=== PATIENT | female | born 1970 | race Two or more races ===

== ENCOUNTER 2017-02-10 18:48 | Inpatient (IN) | payer SELFPAY ==
--- NOTE | 2017-02-10 19:48 | DR.GENAD ---
HPI - PCP Primary Care Physician: NANCI PERERA - HPI Comment HPI Comment: REDNESS AND PAIN LEFT BREAST TIMES 2 WEEKS. PATIENT SAID IT JUST STARTED AND IS GETTING WORSE. NO FEVER. NO DRAINAGE. - Complaint/Symptoms Chief Complaint Doctors Comments: LEFT BREAST INFECTION ON BACTRIM TIMES 2 WEEKS. Chief Complaint:: PT HAS CELLULITIS TO HER LEFT BREAST FOR 2 WEEKS PT WENT TO CLINIC IN [place] AND SHE WAS GIVEN BACTRIM AND SHE SAYS ITS NOT WORKING AND ITS GETTING WORSE.. Self Treatment fo Chief Complaint: PTD LEFT BREST IS RED AROUND NIPPLE AREA AND OUTER BREASTS ,, ... - Nurses notes reviewed Nurses Notes Review: Yes - Source History Provided: Patient - Mode of Arrival Mode of Arrival: Ambulatory - Timing Onset of Chief Complaint: 01/27/17 Came on: Suddenly - Duration Duration: Constant Duration: Minutes - Severity Severity: Moderate PMH - PMH Past Medical History: Yes Past Medical History: Anxiety Past Surgical History: Yes Past Surgical History Comment: TUBAL - Family History History of Family Medical Conditions: No - Social History Does patient currently use any type of tobacco product: No Have you used tobacco products in the last 12 months: No Type of Tobacco Use: None Does any household member use tobacco: No Alcohol Use: None Do you use any recreational Drugs:: No Lives With: Family Lives Where: Home - infectious screening In the last 2 months have you had wt loss of >10#?: NO Have you had fever, night sweats or hemotysis?: No Have you traveled outside the country in the last 6 months?: No Isolation: Standard ROS - Review of Systems Constitutional: No Symptoms Reported Eyes: No Symptoms Reported ENTM: No Symptoms Reported Respiratoy: No Symptoms Reported Cardiovascular: No Symptoms Reported Gastrointestinal/Abdominal: No Symptoms Reported Genitourinary: No Symptoms Reported Neurological: No Symptoms Reported Musculoskeletal: Muscle Pain Integumentary: Other (LEFT BREAST RED WITH INVERTED NIPPLE AND ORANGE PEEL APPEARANCE OF THE BREAT.) Hematologic/Lymphatic: No Symptoms Reported Endocrine: No Symptoms Reported All Other Systems: Reviewed and Negative PE - Vital Signs Vitals: Temperature 98.6 F Pulse Rate 109 Respiratory Rate 18 Blood Pressure 141/81 O2 Sat by Pulse Oximetry 97 - General Limitations: No Limitations General Appearance: Alert - Head Head Exam: Normal Inspection - Eyes Eye exam: Normal Appearance - ENT ENT Exam: Normal External Ear Exam External Ear Exam: Normal External Inspection TM/Canal Exam: Bilateral Normal Nose Exam: Normal Nose Exam Mouth Exam: Normal Inspection Throat Exam: Normal Inspection - Neck Neck Exam: Normal Inspection, Trachea Midline - Chest Chest Inspection: Symmetric Chest Wall Rise - Respiratory Respiratory Exam: Normal Lung Sounds Bilat Respiratory Exam: Bilateral Clear to Auscultation - Cardiovascular Cardiovascular Exam: Regular Rate, Normal Rhythm, Normal Heart Sounds - Abdominal Exam Abdominal Exam: Normal Bowel Sounds, Soft. negative: Tenderness - Extremities Extremities Exam: Normal Inspection - Back Back Exam: Normal Inspection - Psychiatric Psychiatric Exam: Normal Affect, Normal Mood - Skin Skin Exam: Erythema (BREAST RES, FIRM WITH ORANGE PEEL APPEARANCE OF THE BREAST. NO INCREASE IN TEMP.) MDM - Additional Information Additional Information Obtained From: Family - Differential Diagnosis Differential Diagnosis: MASTITIS LEFT BREAST. RULE OUT INFLAMMATORY CANCER. Course - Treatment Treatment: SEE ORDERS - Consultation Consultation Comments: DISCUSS PATIENT WITH DR. CALL. HE WILL ADMIT PATIENT. - Education/Counseling Education/Counseling: Patient, Family, Education Educated On: Treatment, Diagnosis ROR - Labs Reviewed Laboratory Results Reviewed?: Yes Result Diagrams: 02/11/17 04:40 02/11/17 04:40 Laboratory: WBC 9.7 X10^3/uL (3.6-10.0) 02/10/17 19:56 RBC 4.35 X10^6/uL (3.5-5.4) 02/10/17 19:56 Hgb 12.8 g/dL (12.0-16.0) 02/10/17 19:56 Hct 36.4 % (36.0-47.0) 02/10/17 19:56 MCV 83.6 fL (80.0-100.0) 02/10/17 19:56 MCH 29.4 pg (27.0-34.0) 02/10/17 19:56 MCHC 35.2 g/dL (33.0-35.0) H 02/10/17 19:56 RDW 12.6 % (11.6-16.5) 02/10/17 19:56 Plt Count 231 X10^3/uL (150.0-450.0) 02/10/17 19:56 MPV 8.9 fL (7.4-11.0) 02/10/17 19:56 Neut % 72.5 % (42.0-75.0) 02/10/17 19:56 Lymph % 18.2 % (21.0-51.0) L 02/10/17 19:56 [place] % 5.8 % (0.0-13.0) 02/10/17 19:56 Eos % 3.0 % (0.9-2.9) H 02/10/17 19:56 Baso % 0.5 % (0.2-1.0) 02/10/17 19:56 Neut # 7.0 x10^3/uL (2.2-4.8) H 02/10/17 19:56 Lymph # 1.8 X10^3/uL (1.3-2.9) 02/10/17 19:56 [place] # 0.6 x10^3/uL (0.3-0.8) 02/10/17 19:56 Eos # 0.3 x10^3/uL (0.0-0.2) H 02/10/17 19:56 Baso # 0.1 X10^3/uL (0.0-0.1) 02/10/17 19:56 Absolute Nucleated RBC 0.0 /100WBC 02/10/17 19:56 Sodium 138 mmol/L (136-145) 02/10/17 19:56 Corrected Sodium 138 mmol/L (136-145) 02/10/17 19:56 Potassium 3.9 mmol/L (3.5-5.1) 02/10/17 19:56 Chloride 103 mmol/L (98-107) 02/10/17 19:56 Carbon Dioxide 25.2 mmol/L (21-32) 02/10/17 19:56 BUN 10 mg/dL (7-18) 02/10/17 19:56 Creatinine 0.94 mg/dL (0.55-1.02) 02/10/17 19:56 Est GFR (MDRD) Af Amer > 60 (>60) 02/10/17 19:56 Est GFR (MDRD) Non-Af > 60 (>60) 02/10/17 19:56 Glucose 120 mg/dL (65-99) H 02/10/17 19:56 Calcium 8.9 mg/dL (8.5-10.1) 02/10/17 19:56 Corrected Calcium 9.5 mg/dL (8.5-10.1) 02/10/17 19:56 Total Bilirubin 0.40 mg/dL (0.2-1.0) 02/10/17 19:56 AST 14 Units/L (15-37) L 02/10/17 19:56 ALT 23 Units/L (12-78) 02/10/17 19:56 Alkaline Phosphatase 143 Units/L (46-116) H 02/10/17 19:56 C-Reactive Protein 64.90 mg/L (0-3.0) H 02/10/17 19:56 Total Protein 7.8 g/dL (6.4-8.2) 02/10/17 19:56 Albumin 3.3 g/dL (3.4-5.0) L 02/10/17 19:56 Globulin 4.5 g/dL (2.5-4.5) 02/10/17 19:56 Albumin/Globulin Ratio 0.7 Ratio (1.1-2.1) L 02/10/17 19:56 - Diagnosis Discharge Problem: Mastitis of left breast unrelated to or - Discharge Plan Disposition: ADMITTED INPATIENT Condition: Stable - Follow ups/Referrals - Instructions
[2017-02-10 20:10] LABS: BASOPHILS # (AUTO) 0.1 X10^3/uL (0.0-0.1); BASOPHILS % (AUTO) 0.5 % (0.2-1.0); EOSINOPHILS # (AUTO) 0.3 x10^3/uL (0.0-0.2); HEMATOCRIT 36.4 % (36.0-47.0); HEMOGLOBIN 12.8 g/dL (12.0-16.0); LYMPHOCYTES # (AUTO) 1.8 X10^3/uL (1.3-2.9); LYMPHOCYTES % (AUTO) 18.2 % (21.0-51.0); MEAN CORPUSCULAR HEMOGLOBIN 29.4 pg (27.0-34.0); MEAN CORPUSCULAR HGB CONC 35.2 g/dL (33.0-35.0); MEAN CORPUSCULAR VOLUME 83.6 fL (80.0-100.0); MEAN PLATELET VOLUME 8.9 fL (7.4-11.0); MONOCYTES # (AUTO) 0.6 x10^3/uL (0.3-0.8); MONOCYTES % (AUTO) 5.8 % (0.0-13.0); NEUTROPHILS % (AUTO) 72.5 % (42.0-75.0); PLATELET COUNT 231 X10^3/uL (150.0-450.0); RED BLOOD COUNT 4.35 X10^6/uL (3.5-5.4); RED CELL DISTRIBUTION WIDTH 12.6 % (11.6-16.5); WHITE BLOOD COUNT 9.7 X10^3/uL (3.6-10.0)
[2017-02-10 20:25] LABS: ALANINE AMINOTRANSFERASE 23 Units/L (12-78); ALBUMIN 3.3 g/dL (3.4-5.0); ALKALINE PHOSPHATASE 143 Units/L (46-116); ASPARTATE AMINO TRANSFERASE 14 Units/L (15-37); BLOOD UREA NITROGEN 10 mg/dL (7-18); CALCIUM 8.9 mg/dL (8.5-10.1); CARBON DIOXIDE 25.2 mmol/L (21-32); CHLORIDE 103 mmol/L (98-107); COR CA(FOR HYPOALB) 9.5 mg/dL (8.5-10.1); COR NA(FOR HYPERGLY) 138 mmol/L (136-145); CREATININE 0.94 mg/dL (0.55-1.02); SODIUM 138 mmol/L (136-145); TOTAL PROTEIN 7.8 g/dL (6.4-8.2); eGFR BLACK RACES > 60 (>60); eGFR NON BLACK RACES > 60 (>60)
[2017-02-10] MEDS ORDERED: PHENERGAN TAB 25 MG PO PRN (21:39)
[2017-02-10] MEDS ORDERED: TORADOL 30 MG VIAL IVP PRN (21:49)
[2017-02-10] MEDS ORDERED: NS 100 ML IV + SPIKE MINIBAG* 100 ML IV ONE (21:50)
[2017-02-10] MEDS ORDERED: ZOSYN VIAL 3.375 GM IV ONE (21:50)
[2017-02-10] MEDS ORDERED: NS 1000 ML 1,000 ML ONE (21:50)
[2017-02-10] MEDS: NS 1000 ML 1,000 ML IV SCH (21:56)
[2017-02-10] MEDS: ZOSYN VIAL 3.375 GM 3.375 GM in NS 100 ML IV + SPIKE MINIBAG* 100 ML IV SCH (21:56)
[2017-02-10 23:16] VITALS: BMI 50.5
[2017-02-11] MEDS: ANCEF VIAL 1 GM 1 GM in NS 100 ML IV 100 ML IV SCH ×4 (00:26→21:03)
[2017-02-11 05:18] LABS: BASOPHILS % (AUTO) 0.5 % (0.2-1.0); EOSINOPHILS # (AUTO) 0.3 x10^3/uL (0.0-0.2); EOSINOPHILS % (AUTO) 4.5 % (0.9-2.9); HEMATOCRIT 34.7 % (36.0-47.0); HEMOGLOBIN 11.9 g/dL (12.0-16.0); LYMPHOCYTES # (AUTO) 1.3 X10^3/uL (1.3-2.9); LYMPHOCYTES % (AUTO) 18.5 % (21.0-51.0); MEAN CORPUSCULAR HGB CONC 34.4 g/dL (33.0-35.0); MEAN CORPUSCULAR VOLUME 84.2 fL (80.0-100.0); MEAN PLATELET VOLUME 9.2 fL (7.4-11.0); MONOCYTES # (AUTO) 0.4 x10^3/uL (0.3-0.8); MONOCYTES % (AUTO) 5.6 % (0.0-13.0); NEUTROPHILS % (AUTO) 70.9 % (42.0-75.0); PLATELET COUNT 196 X10^3/uL (150.0-450.0); RED BLOOD COUNT 4.12 X10^6/uL (3.5-5.4); RED CELL DISTRIBUTION WIDTH 12.6 % (11.6-16.5)
[2017-02-11 05:33] LABS: ALANINE AMINOTRANSFERASE 20 Units/L (12-78); ALBUMIN 2.8 g/dL (3.4-5.0); ALKALINE PHOSPHATASE 123 Units/L (46-116); ASPARTATE AMINO TRANSFERASE 13 Units/L (15-37); BLOOD UREA NITROGEN 8 mg/dL (7-18); CALCIUM 8.2 mg/dL (8.5-10.1); CARBON DIOXIDE 24.7 mmol/L (21-32); CHLORIDE 104 mmol/L (98-107); COR CA(FOR HYPOALB) 9.2 mg/dL (8.5-10.1); COR NA(FOR HYPERGLY) 138 mmol/L (136-145); CREATININE 0.86 mg/dL (0.55-1.02); SODIUM 137 mmol/L (136-145); TOTAL PROTEIN 6.8 g/dL (6.4-8.2); eGFR BLACK RACES > 60 (>60); eGFR NON BLACK RACES > 60 (>60)
[2017-02-11] MEDS: ZOSYN VIAL 3.375 GM 3.375 GM in NS 100 ML IV + SPIKE MINIBAG* 100 ML IV SCH ×3 (06:16→21:04)
[2017-02-11] MEDS: NS 1000 ML 1,000 ML IV SCH ×3 (06:16→21:04)
[2017-02-11] MEDS: BACTRIM DS TAB PO SCH ×2 (10:04→21:03)
[2017-02-11] MEDS: COGENTIN TAB 1 MG PO SCH ×2 (13:52→21:03)
[2017-02-11] MEDS: ATIVAN TAB 1 MG PO SCH (21:03)
--- NOTE | 2017-02-11 21:12 | DR.H&P ---
H&P - History & Physical for Day of: H&P Date: 02/10/17 - Chief Complaint Chief Complaint: LEFT BREAST PAIN AND SWELLING - Allergies Allergies/Adverse Reactions: Allergies Allergy/AdvReac Type Severity Reaction Status Date / Time No Known Drug Allergies Allergy Verified 02/10/17 18:52 - History of Present Illness History of Present Illness: IS A 46 YEAR OLD FEMALE WHO PRESENTED TO THE EMERGENCY ROOM WITH COMPLAINTS OF LEFT BREAST REDNESS AND PAIN. PATIENT REPORTS THAT SHE WAS SEEN IN THE CLINIC 2 WEEKS AGO AND WAS GIVEN BACTRIM FOR CELLULITIS. PATIENT REPORTS THAT REDENESS AND PAIN ONLY WORSENED DESPITE COMPLIANCE WITH ANTIBIOTICS. ON EXAMINATION, LEFT BREAST WAS NOTED WITH REDNESS AND INVERTED NIPPLE. BREAST ALSO HAD AN ORANGE PEEL APPEARANCE. SHE DENIES FEVER OR DRAINAGE. ON ARRIVAL TO ER, VITALS WERE 98.6-109-18-97%-141/81. A CBC AND CMP WERE OBTAINED. ABNORMAL LAB VALUES INCLUDE THE FOLLOWING: GLUCOSE 120, AST 14, ALK PHOS 143, CRP 64.9, ALBUMIN 3.3. WE ADMITTED PATIENT FOR FURTHER TREATMENT AND EVALUATION OF LEFT MASTITIS AND TO R/O INFLAMMATORY CANCER. WE STARTED PATIENT ON NS @ 125ML/HR, ANCEP 1 GM IV Q8H, AND ZOSYN 3.375 IV Q8H. WE WILL CHECK CBC, CMP, AND OBTAIN A ULTRASOUND OF THE BREAST IN THE AM AND WILL CONTINUE TO MONITOR PATIENT. - Past Medical History Past Medical History: Anxiety - Past Surgical History Surgical History: No History - Social History Does patient currently use any type of tobacco product: No Have you used tobacco products in the last 12 months: No Type of Tobacco Use: None Does any household member use tobacco: No Alcohol Use: None Drug Use: None - Medications Home Medications: Benztropine Mesylate [COGENTIN 1 MG TAB *] 1 mg PO TID 02/10/17 [History Confirmed 02/10/17] Lorazepam [ATIVAN 1 MG TAB *] 1 mg PO HS 02/10/17 [History Confirmed 02/10/17] Sulfamethoxazole-Trimethoprim [BACTRIM DS TAB 800/160 MG *] 1 tab PO BID [History Confirmed 02/10/17] - Review of Systems Constitutional: Fever Eyes: No Symptoms Reported ENT: No Symptoms Reported Respiratory: No Symptoms Reported Cardiovascular: No Symptoms Reported Gastrointestinal: No Symptoms Reported Genitourinary: No Symptoms Reported Musculoskeletal: No Symptoms Reported Skin: See HPI, Other (REDNESS TO LEFT BREAST, INVERTED NIPPLE) Neurological: No Symptoms Reported - Physical Exam Vital Signs: Temperature 98.1 F Pulse Rate [Left Brachial] 81 Pulse Rate 109 Respiratory Rate 18 Blood Pressure [Left Arm] 100/55 Blood Pressure 141/81 O2 Sat by Pulse Oximetry 97 Oriented: Normal Eyes: Normal Ear: Normal Nose: Normal Throat: Normal Respiratory: Clear Throughout Cardiovascular: Normal : Normal Auscultation: Bowel Sounds: Normal Palpation: Normal Tenderness: Normal Skin: Red (LEFT BREAST ), Tender, Hot Musculoskeletal: Normal Psychiatric: Normal Mood Description: Calm Affect: Normal Speech Pattern: Clear - Assessment/Plan (1) Mastitis of left breast unrelated to or Status: Acute Plan: BREAST US, ANCEF AND ZOSYN IV, CONTINUE TO MONITOR
--- NOTE | 2017-02-11 21:56 | PCM.PROG ---
Progress Note - Progress Note for Day of Date: 02/11/17 - Subjective Subjective: WAS ADMITTED FOR MASTITIS OF THE LEFT BREAST. SHE IS ALERT AND ORIENTED, LYING IN BED ON MORNING ROUNDS. PATIENTS DAUGHTER IS AT BEDSIDE. PATIENT IS NOTED WITH COMPLAINTS OF PAIN, REDNESS, AND SWELLING TO THE LEFT BREAST. PATIENT REPORTED THAT SYMPTOMS BEGAN TWO WEEKS AGO. SHE REPORTS BEING PRESCRIBED BACTRIM, HOWEVER, SYMPTOMS GOT WORSE DESPITE COMPLIANCE WITH ANTIBIOTICS. ON EXAMINATION, LEFT BREAST IS NOTED WITH ERRYTHEMA AND HARDENED MASS. WE SUSPECT THIS TO BE AN ABSCESS. LUNGS ARE CLEAR TO AUSCULTATION. ABDOMEN IS SOFT, ROUND, AND NON TENDER. NORMAL BOWEL SOUNDS ARE NOTED IN ALL QUADRANTS. VITAL SIGNS THIS MORNING WERE 98.2-84-18-97%-107/57. WE OBTAINED A CBC AND CMP. ABNORMAL LAB RESULTS ARE FOLLOWS: HGB 11.9, HCT 34.7, GLUCOSE 145, CALCIUM 8.2, AST 13, ALK PHOS 123, ALBUMIN 2.8. A BREAST ULTRASOUND IS PENDING FOR THIS MORNING. WE WILL CONTINUE WITH CURRENT PLAN OF CARE. WE PLAN TO CHECK A CBC AND CMP IN THE MORNING AND CONTINUE TO MONITOR PATIENT. - Past Medical Family Social History Past Med/Fam/Surg Hx: No changes since H&P Allergies: Allergies No Known Drug Allergies Allergy (Verified 02/10/17 18:52) - Review of Systems ROS: No change since H&P - Vital Signs and I&O's Vital Signs: Temperature 98.1 F Pulse Rate [Left Brachial] 81 Pulse Rate 109 Respiratory Rate 18 Blood Pressure [Left Arm] 100/55 Blood Pressure 141/81 O2 Sat by Pulse Oximetry 97 Intake and Output: Intake & Output 02/09/17 02/10/17 02/11/17 02/12/17 11:59 11:59 11:59 11:59 Intake Total 2009 1655 Balance 2009 1655 - Physical Exam Oriented: Normal Eyes: Normal Ear: Normal Nose: Normal Throat: Normal Respiratory: Normal Cardiovascular: Normal : Normal Auscultation: Bowel Sounds: Normal Palpation: Normal Tenderness: Normal Skin: Red (LEFT BREAST ), Tender, Hot Musculoskeletal: Normal Psychiatric: Normal Mood Description: Calm Affect: Normal Speech Pattern: Clear - Laboratory and Diagnostics Result Diagrams: 02/11/17 04:40 02/11/17 04:40 Labs: Laboratory WBC 7.0 X10^3/uL (3.6-10.0) 02/11/17 04:40 RBC 4.12 X10^6/uL (3.5-5.4) 02/11/17 04:40 Hgb 11.9 g/dL (12.0-16.0) L 02/11/17 04:40 Hct 34.7 % (36.0-47.0) L 02/11/17 04:40 MCV 84.2 fL (80.0-100.0) 02/11/17 04:40 MCH 29.0 pg (27.0-34.0) 02/11/17 04:40 MCHC 34.4 g/dL (33.0-35.0) 02/11/17 04:40 RDW 12.6 % (11.6-16.5) 02/11/17 04:40 Plt Count 196 X10^3/uL (150.0-450.0) 02/11/17 04:40 MPV 9.2 fL (7.4-11.0) 02/11/17 04:40 Neut % 70.9 % (42.0-75.0) 02/11/17 04:40 Lymph % 18.5 % (21.0-51.0) L 02/11/17 04:40 [place] % 5.6 % (0.0-13.0) 02/11/17 04:40 Eos % 4.5 % (0.9-2.9) H 02/11/17 04:40 Baso % 0.5 % (0.2-1.0) 02/11/17 04:40 Neut # 5.0 x10^3/uL (2.2-4.8) H 02/11/17 04:40 Lymph # 1.3 X10^3/uL (1.3-2.9) 02/11/17 04:40 [place] # 0.4 x10^3/uL (0.3-0.8) 02/11/17 04:40 Eos # 0.3 x10^3/uL (0.0-0.2) H 02/11/17 04:40 Baso # 0.0 X10^3/uL (0.0-0.1) 02/11/17 04:40 Absolute Nucleated RBC 0.0 /100WBC 02/11/17 04:40 Sodium 137 mmol/L (136-145) 02/11/17 04:40 Corrected Sodium 138 mmol/L (136-145) 02/11/17 04:40 Potassium 4.0 mmol/L (3.5-5.1) 02/11/17 04:40 Chloride 104 mmol/L (98-107) 02/11/17 04:40 Carbon Dioxide 24.7 mmol/L (21-32) 02/11/17 04:40 BUN 8 mg/dL (7-18) 02/11/17 04:40 Creatinine 0.86 mg/dL (0.55-1.02) 02/11/17 04:40 Est GFR (MDRD) Af Amer > 60 (>60) 02/11/17 04:40 Est GFR (MDRD) Non-Af > 60 (>60) 02/11/17 04:40 Glucose 145 mg/dL (65-99) H 02/11/17 04:40 Calcium 8.2 mg/dL (8.5-10.1) L 02/11/17 04:40 Corrected Calcium 9.2 mg/dL (8.5-10.1) 02/11/17 04:40 Total Bilirubin 0.40 mg/dL (0.2-1.0) 02/11/17 04:40 AST 13 Units/L (15-37) L 02/11/17 04:40 ALT 20 Units/L (12-78) 02/11/17 04:40 Alkaline Phosphatase 123 Units/L (46-116) H 02/11/17 04:40 C-Reactive Protein 64.90 mg/L (0-3.0) H 02/10/17 19:56 Total Protein 6.8 g/dL (6.4-8.2) 02/11/17 04:40 Albumin 2.8 g/dL (3.4-5.0) L 02/11/17 04:40 Globulin 4.0 g/dL (2.5-4.5) 02/11/17 04:40 Albumin/Globulin Ratio 0.7 Ratio (1.1-2.1) L 02/11/17 04:40 - Plan (1) Mastitis of left breast unrelated to or Status: Acute Plan: BREAST US, ANCEF AND ZOSYN IV, CONTINUE TO MONITOR
[2017-02-12] MEDS: NS 1000 ML 1,000 ML IV SCH ×5 (03:15→21:54)
[2017-02-12] MEDS: COGENTIN TAB 1 MG PO SCH ×3 (05:18→21:54)
[2017-02-12] MEDS: ANCEF VIAL 1 GM 1 GM in NS 100 ML IV 100 ML IV SCH ×3 (05:18→21:53)
[2017-02-12] MEDS: ZOSYN VIAL 3.375 GM 3.375 GM in NS 100 ML IV + SPIKE MINIBAG* 100 ML IV SCH ×3 (05:19→21:54)
[2017-02-12 05:34] LABS: ALANINE AMINOTRANSFERASE 17 Units/L (12-78); ALBUMIN 2.7 g/dL (3.4-5.0); ALKALINE PHOSPHATASE 124 Units/L (46-116); ASPARTATE AMINO TRANSFERASE 11 Units/L (15-37); BLOOD UREA NITROGEN 7 mg/dL (7-18); CALCIUM 8.2 mg/dL (8.5-10.1); CHLORIDE 106 mmol/L (98-107); COR CA(FOR HYPOALB) 9.2 mg/dL (8.5-10.1); CREATININE 0.63 mg/dL (0.55-1.02); SODIUM 138 mmol/L (136-145); TOTAL PROTEIN 6.7 g/dL (6.4-8.2); eGFR BLACK RACES > 60 (>60); eGFR NON BLACK RACES > 60 (>60)
[2017-02-12 05:45] LABS: BASOPHILS % (AUTO) 0.7 % (0.2-1.0); EOSINOPHILS # (AUTO) 0.4 x10^3/uL (0.0-0.2); EOSINOPHILS % (AUTO) 5.9 % (0.9-2.9); HEMATOCRIT 34.5 % (36.0-47.0); LYMPHOCYTES # (AUTO) 1.4 X10^3/uL (1.3-2.9); LYMPHOCYTES % (AUTO) 19.6 % (21.0-51.0); MEAN CORPUSCULAR HEMOGLOBIN 29.7 pg (27.0-34.0); MEAN CORPUSCULAR HGB CONC 34.7 g/dL (33.0-35.0); MEAN CORPUSCULAR VOLUME 85.6 fL (80.0-100.0); MEAN PLATELET VOLUME 9.3 fL (7.4-11.0); MONOCYTES # (AUTO) 0.5 x10^3/uL (0.3-0.8); MONOCYTES % (AUTO) 7.4 % (0.0-13.0); NEUTROPHILS # (AUTO) 4.6 x10^3/uL (2.2-4.8); NEUTROPHILS % (AUTO) 66.4 % (42.0-75.0); PLATELET COUNT 209 X10^3/uL (150.0-450.0); RED BLOOD COUNT 4.03 X10^6/uL (3.5-5.4); RED CELL DISTRIBUTION WIDTH 12.2 % (11.6-16.5)
[2017-02-12] MEDS: BACTRIM DS TAB PO SCH ×2 (09:22→20:49)
--- NOTE | 2017-02-12 10:38 | US ---
HISTORY: Left breast pain, edema, erythema Study: Left breast ultrasound Comparison: None Technique: Multiple grayscale and color Doppler images of the left breast were obtained. Findings: From 11-1 o'clock in the region of interest, there is irregular ill-defined hypoechoic parenchyma wit h internal vascularity favored to represent mastitis the with early ill-defined abscess formation not entirely excluded. A trial of antibiotic therapy is recommended. If symptoms persist/worsen after an appropriate trial of therapy, ultrasound-guided aspiration should be attempted. Additionally, routin e outpatient nonemergent bilateral mammography is recommended if not performed within the last year a fter completion of therapy and resolution of symptoms. IMPRESSION: Abnormal sonographic evaluation of the left breast as above. Reported By:
--- NOTE | 2017-02-12 18:35 | PCM.PROG ---
Progress Note - Progress Note for Day of Date: 02/12/17 - Subjective Subjective: WAS ADMITTED FOR MASTITIS OF THE LEFT BREAST. SHE IS ALERT AND ORIENTED, LYING IN BED ON MORNING ROUNDS. PATIENTS DAUGHTER IS AT BEDSIDE. SHE CONTINUES WITH COMPLAINTS OF PAIN, REDNESS, AND SWELLING TO THE LEFT BREAST. ON EXAMINATION, LEFT BREAST CONTINUES WITH ERRYTHEMA, HOWEVER, APPEAR TO BE FORM MAKER SINCE YESTERDAY. SUSPECTED ABSCESS IS SMALLER IS SIZE WHEN PALPATED. NIPPLE IS INVERTED. LUNGS ARE CLEAR TO AUSCULTATION. ABDOMEN IS SOFT, ROUND, AND NON-TENDER. BOWEL SOUNDS ARE NOTED NORMAL IN ALL QUADRANTS. HER VITAL SIGNS THIS MORNING ARE 97.7-85-20-97%-99/57. WE OBTAINED A CBC AND CMP. ABNORMAL LABS INCLUDE THE FOLLOWING: HGB 11.9, HCT 34.7, GLUCOSE 102, CALCIUM 8.2, AST 11, ALK PHOS 124, ALBUMIN 2.7. BREAST ULTRASOUND WAS OBTAINED YESTERDAY. IT REPORTED IRREGULAR ILL DEFINED HYPOECHOIC PARENCHYMA WITH INTERNAL VASCULARITY FAVORED TO REPRESENT MASTITIS WITH EARLY ILL DEFINED ABSCESS FORMATION NOT ENTIRELY EXCLUDED. RADIOLOGIST RECOMMENDED A TRIAL OF ANTIBIOTICS. IF SYMPTOMS WORSEN AFTER ROUND OF ANTIBIOTICS, THEN ULTRASOUND GUIDED ASPIRATION SHOULD BE ATTEMPTED. ADDITIONALLY, MAMMOGRAM IS RECOMMENDED. WE WILL CONTINUE CURRENT PLAN OF CARE. WE PLAN TO OBTAIN CBC, CMP, CRP, AND SED RATE IN THE MORNING AND CONTINUE TO MONITOR PATIENT. - Past Medical Family Social History Past Med/Fam/Surg Hx: No changes since H&P Allergies: Allergies No Known Drug Allergies Allergy (Verified 02/10/17 18:52) - Review of Systems ROS: No change since H&P - Vital Signs and I&O's Vital Signs: Temperature 97.8 F Pulse Rate [Left Brachial] 81 Pulse Rate 109 Respiratory Rate 18 Blood Pressure [Left Arm] 116/58 Blood Pressure 141/81 O2 Sat by Pulse Oximetry 96 Intake and Output: Intake & Output 02/10/17 02/11/17 02/12/17 02/13/17 11:59 11:59 11:59 11:59 Intake Total 2009 3153 1485 Balance 2009 3153 1485 - Physical Exam Oriented: Normal Eyes: Normal Ear: Normal Nose: Normal Throat: Normal Respiratory: Normal Cardiovascular: Normal : Normal Auscultation: Bowel Sounds: Normal Palpation: Normal Tenderness: Normal Skin: Red (LEFT BREAST ), Tender, Hot Musculoskeletal: Normal Psychiatric: Normal Mood Description: Calm Affect: Normal Speech Pattern: Clear, Appropriate - Laboratory and Diagnostics Result Diagrams: 02/12/17 03:35 02/12/17 03:35 Labs: 02/10/17 19:59 Blood Blood Culture - Preliminary 02/10/17 19:56 Blood Blood Culture - Preliminary Laboratory WBC 7.0 X10^3/uL (3.6-10.0) 02/12/17 03:35 RBC 4.03 X10^6/uL (3.5-5.4) 02/12/17 03:35 Hgb 12.0 g/dL (12.0-16.0) 02/12/17 03:35 Hct 34.5 % (36.0-47.0) L 02/12/17 03:35 MCV 85.6 fL (80.0-100.0) 02/12/17 03:35 MCH 29.7 pg (27.0-34.0) 02/12/17 03:35 MCHC 34.7 g/dL (33.0-35.0) 02/12/17 03:35 RDW 12.2 % (11.6-16.5) 02/12/17 03:35 Plt Count 209 X10^3/uL (150.0-450.0) 02/12/17 03:35 MPV 9.3 fL (7.4-11.0) 02/12/17 03:35 Neut % 66.4 % (42.0-75.0) 02/12/17 03:35 Lymph % 19.6 % (21.0-51.0) L 02/12/17 03:35 [place] % 7.4 % (0.0-13.0) 02/12/17 03:35 Eos % 5.9 % (0.9-2.9) H 02/12/17 03:35 Baso % 0.7 % (0.2-1.0) 02/12/17 03:35 Neut # 4.6 x10^3/uL (2.2-4.8) 02/12/17 03:35 Lymph # 1.4 X10^3/uL (1.3-2.9) 02/12/17 03:35 [place] # 0.5 x10^3/uL (0.3-0.8) 02/12/17 03:35 Eos # 0.4 x10^3/uL (0.0-0.2) H 02/12/17 03:35 Baso # 0.0 X10^3/uL (0.0-0.1) 02/12/17 03:35 Absolute Nucleated RBC 0.1 /100WBC 02/12/17 03:35 Sodium 138 mmol/L (136-145) 02/12/17 03:35 Corrected Sodium TNP 02/12/17 03:35 Potassium 4.1 mmol/L (3.5-5.1) 02/12/17 03:35 Chloride 106 mmol/L (98-107) 02/12/17 03:35 Carbon Dioxide 25.0 mmol/L (21-32) 02/12/17 03:35 BUN 7 mg/dL (7-18) 02/12/17 03:35 Creatinine 0.63 mg/dL (0.55-1.02) 02/12/17 03:35 Est GFR (MDRD) Af Amer > 60 (>60) 02/12/17 03:35 Est GFR (MDRD) Non-Af > 60 (>60) 02/12/17 03:35 Glucose 102 mg/dL (65-99) H 02/12/17 03:35 Calcium 8.2 mg/dL (8.5-10.1) L 02/12/17 03:35 Corrected Calcium 9.2 mg/dL (8.5-10.1) 02/12/17 03:35 Total Bilirubin 0.20 mg/dL (0.2-1.0) 02/12/17 03:35 AST 11 Units/L (15-37) L 02/12/17 03:35 ALT 17 Units/L (12-78) 02/12/17 03:35 Alkaline Phosphatase 124 Units/L (46-116) H 02/12/17 03:35 C-Reactive Protein 64.90 mg/L (0-3.0) H 02/10/17 19:56 Total Protein 6.7 g/dL (6.4-8.2) 02/12/17 03:35 Albumin 2.7 g/dL (3.4-5.0) L 02/12/17 03:35 Globulin 4.0 g/dL (2.5-4.5) 02/12/17 03:35 Albumin/Globulin Ratio 0.7 Ratio (1.1-2.1) L 02/12/17 03:35 - Plan (1) Mastitis of left breast unrelated to or Status: Acute Plan: BREAST US, ANCEF AND ZOSYN IV, CONTINUE TO MONITOR
[2017-02-12] MEDS: ATIVAN TAB 1 MG PO SCH (20:49)
[2017-02-13] MEDS: ZOSYN VIAL 3.375 GM 3.375 GM in NS 100 ML IV + SPIKE MINIBAG* 100 ML IV SCH ×2 (05:12→14:03)
[2017-02-13] MEDS: ANCEF VIAL 1 GM 1 GM in NS 100 ML IV 100 ML IV SCH ×2 (05:12→13:39)
[2017-02-13] MEDS: COGENTIN TAB 1 MG PO SCH ×2 (05:13→13:39)
[2017-02-13] MEDS: NS 1000 ML 1,000 ML IV SCH (05:13)
[2017-02-13 06:05] LABS: BASOPHILS % (AUTO) 0.6 % (0.2-1.0); EOSINOPHILS # (AUTO) 0.3 x10^3/uL (0.0-0.2); EOSINOPHILS % (AUTO) 6.1 % (0.9-2.9); HEMATOCRIT 34.4 % (36.0-47.0); LYMPHOCYTES # (AUTO) 1.4 X10^3/uL (1.3-2.9); LYMPHOCYTES % (AUTO) 24.1 % (21.0-51.0); MEAN CORPUSCULAR HEMOGLOBIN 29.4 pg (27.0-34.0); MEAN CORPUSCULAR HGB CONC 34.8 g/dL (33.0-35.0); MEAN CORPUSCULAR VOLUME 84.6 fL (80.0-100.0); MEAN PLATELET VOLUME 9.3 fL (7.4-11.0); MONOCYTES # (AUTO) 0.3 x10^3/uL (0.3-0.8); MONOCYTES % (AUTO) 5.4 % (0.0-13.0); NEUTROPHILS # (AUTO) 3.7 x10^3/uL (2.2-4.8); NEUTROPHILS % (AUTO) 63.8 % (42.0-75.0); PLATELET COUNT 214 X10^3/uL (150.0-450.0); RED BLOOD COUNT 4.07 X10^6/uL (3.5-5.4); RED CELL DISTRIBUTION WIDTH 12.5 % (11.6-16.5); WHITE BLOOD COUNT 5.8 X10^3/uL (3.6-10.0)
[2017-02-13 06:41] LABS: ALANINE AMINOTRANSFERASE 18 Units/L (12-78); ALBUMIN 2.6 g/dL (3.4-5.0); ALKALINE PHOSPHATASE 107 Units/L (46-116); ASPARTATE AMINO TRANSFERASE 13 Units/L (15-37); BLOOD UREA NITROGEN 6 mg/dL (7-18); CARBON DIOXIDE 24.9 mmol/L (21-32); CHLORIDE 108 mmol/L (98-107); COR CA(FOR HYPOALB) 9.1 mg/dL (8.5-10.1); CREATININE 0.69 mg/dL (0.55-1.02); SODIUM 141 mmol/L (136-145); TOTAL PROTEIN 6.3 g/dL (6.4-8.2); eGFR BLACK RACES > 60 (>60); eGFR NON BLACK RACES > 60 (>60)
[2017-02-13 07:00] LABS: ERYTHROCYTE SEDIMENTATION RATE 35 MM/HOUR (0-20)
[2017-02-13] MEDS: BACTRIM DS TAB PO SCH (09:41)
[2017-02-13 12:36] VITALS: BP 104/63
== END 2017-02-13 15:45 | disposition home or self-care (01) | DRG 601 ==
LOC: ER 19:05 → MED/SURG 21:37
PROVIDERS: ADMIT Internal Medicine; ATTEND Internal Medicine
DX: N61.0 Mastitis without abscess (principal); N64.4 Mastodynia
CPT/HCPCS: 36415; 76642; 80053; 85025; 85652; 86140; 87040; 96365; 96374; 99284; A4222; J0690; J2543